=== PATIENT | female | born 1935 | race Caucasian/White ===

== ENCOUNTER → 2017-10-08 | Outpatient (CLI) | payer MEDICARE, BC, OTHER ==
[~2017-10-08] VITALS: Ht 175.3 cm; Wt 79.0 kg
[~2017-10-08] MED LIST: ALBU8HFA IH; AMLO-511 PO; ASPI81 PO; ATOR40TA28 PO; CARV3 PO; CHOL200016 PO; CYAN1TAB44 PO; DONE10TA8 PO; HYDR-309 PO; ISOS60TA4 PO; LOPE2 PO; LOSA100T29 PO; MEMA10TA11 PO; METF500T4 PO; MULT-1259 PO; OMEG-150 PO; OMEP20 PO; RIVA20TA PO; SITA100 PO; TIOT185 IH; TRAZ-144 PO
[2017-10-08 14:26] VITALS: BP 117/68
== END | disposition home or self-care (01) ==
LOC: SRCNTR 13:57
PROVIDERS: ATTEND Internal Medicine Cardiovascular Disease
DX: I11.9 Hypertensive heart disease without heart failure (principal); I25.10 Atherosclerotic heart disease of native coronary artery without angina pectoris; F03.90 Unspecified dementia, unspecified severity, without behavioral disturbance, psychotic disturbance, mood disturbance, and anxiety; E78.5 Hyperlipidemia, unspecified; D69.6 Thrombocytopenia, unspecified; I48.2 Chronic atrial fibrillation; J44.9 Chronic obstructive pulmonary disease, unspecified; K21.9 Gastro-esophageal reflux disease without esophagitis; I25.2 Old myocardial infarction; Z95.5 Presence of coronary angioplasty implant and graft; Z79.82 Long term (current) use of aspirin; Z86.73 Personal history of transient ischemic attack (TIA), and cerebral infarction without residual deficits
CPT/HCPCS: G0463

== ENCOUNTER → 2017-10-10 | Outpatient (CLI) | payer MEDICARE, BC, OTHER ==
[2017-10-10 12:19] LABS: EOSINOPHILS % (AUTO) 3.4 % (1.0-6.0); HEMATOCRIT 35.5 % (36-46); HEMOGLOBIN 11.7 g/dL (12.0-16.0); LYMPHOCYTES # (AUTO) 1.3 K/uL (1.0-4.8); LYMPHOCYTES % (AUTO) 22.5 % (22.0-44.0); MEAN CORPUSCULAR HEMOGLOBIN 29.7 pg (26.0-34.0); MEAN CORPUSCULAR HGB CONC 33.1 G/dL (31.0-37.0); MEAN CORPUSCULAR VOLUME 90 fL (80-100); MONOCYTES # (AUTO) 0.5 K/uL (0.1-1.0); MONOCYTES % (AUTO) 9.2 % (2.0-9.0); NEUTROPHILS # (AUTO) 3.6 K/uL (1.8-7.7); NEUTROPHILS % (AUTO) 63.9 % (40.0-70.0); PLATELET COUNT (AUTO) 257 K/uL (150-450); RED BLOOD CELL COUNT(AUTO) 3.96 MIL/uL (4.00-5.20); RED CELL DISTRIBUTION WIDTH 15.8 % (11.5-14.5)
[2017-10-10 12:29] LABS: HEMOGLOBIN A1C 5.9 % (4.5-6.2)
[2017-10-10 12:37] LABS: ALBUMIN 3.1 g/dL (3.4-5.0); BILIRUBIN,TOTAL 0.5 mg/dL (0.1-1.0); CALCIUM, TOTAL 9.3 mg/dL (8.8-10.5); CHOL/HDL RATIO 2.8 (3.9-5.7); CREATININE 0.9 mg/dL (0.60-1.30); POTASSIUM 4.5 mmol/L (3.5-5.1); THYROID STIMULATING HORMONE 0.92 uIU/mL (0.36-3.74); TOTAL PROTEIN, SERUM 6.5 g/dL (6.4-8.2)
[2017-10-11 16:16] LABS: APPEARANCE,URINE CLOUDY (CLEAR); BILIRUBIN,URINE NEGATIVE (NEGATIVE); GLUCOSE, URINE (UA) NEGATIVE (NEGATIVE); KETONES,URINE NEGATIVE (NEGATIVE); LEUKOCYTE ESTERASE ,URINE SMALL (NEGATIVE); NITRATE,URINE NEGATIVE (NEGATIVE); OCCULT BLOOD,URINE NEGATIVE (NEGATIVE); PH,URINE 5.5 (5.0-8.0); PROTEIN,URINE NEGATIVE (NEGATIVE); UROBILINOGEN,URINE 0.2 mg/dL (<=1.0)
[2017-10-11 16:57] LABS: BACTERIA,URINE Many /HPF (None Seen); RBC,URINE 0-2 /HPF (0-2)
[2017-10-11 16:58] LABS: SQUAMOUS EPITHELIAL CELL,UR Few /LPF (None Seen)
== END | disposition home or self-care (01) ==
LOC: LABPV 09:15
PROVIDERS: ATTEND Internal Medicine Cardiovascular Disease
DX: I10 Essential (primary) hypertension (principal); R82.99 Other abnormal findings in urine; R79.89 Other specified abnormal findings of blood chemistry
CPT/HCPCS: 82271; 83036; 84443; 87086

== ENCOUNTER → 2017-11-20 | Outpatient (CLI) | payer MEDICARE, BC, OTHER ==
[~2017-11-20] VITALS: Ht 175.3 cm; Wt 75.5 kg
[~2017-11-20] MED LIST changes: -METF500T4 PO; +METF500T6 PO
[2017-11-20 10:59] VITALS: BP 110/76
== END | disposition home or self-care (01) ==
LOC: SRCNTR 10:55
PROVIDERS: ATTEND Internal Medicine Cardiovascular Disease
DX: I11.9 Hypertensive heart disease without heart failure (principal); I25.10 Atherosclerotic heart disease of native coronary artery without angina pectoris; I48.0 Paroxysmal atrial fibrillation; I49.9 Cardiac arrhythmia, unspecified; E11.9 Type 2 diabetes mellitus without complications; M19.90 Unspecified osteoarthritis, unspecified site; S72.92XD Unspecified fracture of left femur, subsequent encounter for closed fracture with routine healing; Z91.81 History of falling
CPT/HCPCS: G0463

== ENCOUNTER → 2018-01-08 | Outpatient (CLI) | payer MEDICARE, BC, OTHER ==
[~2018-01-08] VITALS: Ht 175.3 cm; Wt 78.0 kg
[~2018-01-08] MED LIST changes: +TRAM50TA4 PO; -TRAZ-144 PO; +TRAZ-219 PO
[2018-01-08 09:58] VITALS: BP 125/64
== END | disposition home or self-care (01) ==
LOC: SRCNTR 09:52
PROVIDERS: ATTEND Internal Medicine Cardiovascular Disease
DX: I25.10 Atherosclerotic heart disease of native coronary artery without angina pectoris (principal); I11.9 Hypertensive heart disease without heart failure; J43.9 Emphysema, unspecified; E11.9 Type 2 diabetes mellitus without complications; M19.90 Unspecified osteoarthritis, unspecified site; I48.0 Paroxysmal atrial fibrillation; I49.9 Cardiac arrhythmia, unspecified; F03.90 Unspecified dementia, unspecified severity, without behavioral disturbance, psychotic disturbance, mood disturbance, and anxiety
CPT/HCPCS: G0463

== ENCOUNTER → 2018-04-09 | Outpatient (CLI) | payer MEDICARE, BC, OTHER ==
[~2018-04-09] VITALS: Ht 175.3 cm; Wt 71.0 kg
[~2018-04-09] MED LIST changes: -CHOL200016 PO; +CHOL200059 PO; -HYDR-309 PO; -LOSA100T29 PO; +LOSA100T58 PO; +METF-960 PO; -METF500T6 PO
[2018-04-09 12:43] VITALS: BP 124/75
== END | disposition home or self-care (01) ==
LOC: SRCNTR 10:55
PROVIDERS: ATTEND Internal Medicine Cardiovascular Disease
DX: E78.5 Hyperlipidemia, unspecified (principal); I48.2 Chronic atrial fibrillation; I25.10 Atherosclerotic heart disease of native coronary artery without angina pectoris; J44.9 Chronic obstructive pulmonary disease, unspecified; I11.9 Hypertensive heart disease without heart failure; E11.9 Type 2 diabetes mellitus without complications; M19.90 Unspecified osteoarthritis, unspecified site; F03.90 Unspecified dementia, unspecified severity, without behavioral disturbance, psychotic disturbance, mood disturbance, and anxiety; Z98.61 Coronary angioplasty status
CPT/HCPCS: G0463

== ENCOUNTER → 2018-04-17 | Outpatient (CLI) | payer MEDICARE, BC, OTHER ==
[~2018-04-17] MED LIST changes: +LOSA100T20 PO; -LOSA100T58 PO
[2018-04-17 12:09] LABS: EOSINOPHILS % (AUTO) 1.8 % (1.0-6.0); HEMATOCRIT 39.9 % (36-46); HEMOGLOBIN 13.2 g/dL (12.0-16.0); LYMPHOCYTES # (AUTO) 1.5 K/uL (1.0-4.8); LYMPHOCYTES % (AUTO) 29.1 % (22.0-44.0); MEAN CORPUSCULAR HEMOGLOBIN 31.3 pg (26.0-34.0); MEAN CORPUSCULAR VOLUME 95 fL (80-100); MONOCYTES # (AUTO) 0.5 K/uL (0.1-1.0); MONOCYTES % (AUTO) 9.2 % (2.0-9.0); NEUTROPHILS % (AUTO) 58.9 % (40.0-70.0); PLATELET COUNT (AUTO) 205 K/uL (150-450); RED CELL DISTRIBUTION WIDTH 14.4 % (11.5-14.5)
[2018-04-17 13:21] LABS: ALBUMIN 3.4 g/dL (3.4-5.0); BILIRUBIN,TOTAL 1.2 mg/dL (0.1-1.0); CALCIUM, TOTAL 8.9 mg/dL (8.8-10.5); CREATININE 1.52 mg/dL (0.60-1.30); POTASSIUM 3.9 mmol/L (3.5-5.1); TOTAL PROTEIN, SERUM 6.4 g/dL (6.4-8.2)
[2018-04-17 15:01] LABS: HEMOGLOBIN A1C 5.7 % (4.5-6.2)
== END | disposition home or self-care (01) ==
LOC: LABPV 10:07
PROVIDERS: ATTEND Internal Medicine Cardiovascular Disease
DX: I10 Essential (primary) hypertension (principal); E11.9 Type 2 diabetes mellitus without complications; E78.5 Hyperlipidemia, unspecified
CPT/HCPCS: 83036

== ENCOUNTER → 2018-07-23 | Outpatient (CLI) | payer MEDICARE, BC, OTHER ==
[~2018-07-23] VITALS: Ht 175.3 cm; Wt 73.5 kg
[~2018-07-23] MED LIST changes: -LOSA100T20 PO; +LOSA100T58 PO
[2018-07-23 10:12] VITALS: BP 126/60
== END | disposition home or self-care (01) ==
LOC: SRCNTR 10:06
PROVIDERS: ATTEND Internal Medicine Cardiovascular Disease
DX: E78.5 Hyperlipidemia, unspecified (principal); E11.9 Type 2 diabetes mellitus without complications; I10 Essential (primary) hypertension; I48.91 Unspecified atrial fibrillation; J44.9 Chronic obstructive pulmonary disease, unspecified; I25.10 Atherosclerotic heart disease of native coronary artery without angina pectoris
CPT/HCPCS: 93005; G0463

== ENCOUNTER → 2018-08-21 | Outpatient (CLI) | payer MEDICARE, BC, OTHER | END | disposition home or self-care (01) | LOC: RADPV 08:26 | PROVIDERS: ATTEND Internal Medicine Cardiovascular Disease | DX: I08.1 Rheumatic disorders of both mitral and tricuspid valves (principal); I11.9 Hypertensive heart disease without heart failure; R07.9 Chest pain, unspecified; E11.9 Type 2 diabetes mellitus without complications | CPT/HCPCS: 93306 ==

== ENCOUNTER → 2018-09-22 | Outpatient (CLI) | payer MEDICARE, BC, OTHER ==
[~2018-09-22] VITALS: Ht 175.3 cm; Wt 7.5 kg
[~2018-09-22] MED LIST changes: -TRAZ-219 PO; +TRAZ-252 PO
[2018-09-22 11:28] VITALS: BP 122/70
== END | disposition home or self-care (01) ==
LOC: SRCNTR 11:15
PROVIDERS: ATTEND Internal Medicine Cardiovascular Disease
DX: J44.9 Chronic obstructive pulmonary disease, unspecified (principal); I25.10 Atherosclerotic heart disease of native coronary artery without angina pectoris; I48.91 Unspecified atrial fibrillation; E11.9 Type 2 diabetes mellitus without complications; I10 Essential (primary) hypertension; E78.5 Hyperlipidemia, unspecified; F03.90 Unspecified dementia, unspecified severity, without behavioral disturbance, psychotic disturbance, mood disturbance, and anxiety
CPT/HCPCS: G0463